=== PATIENT | female | born 1950 | race African-American/Black ===

== ENCOUNTER 2024-06-06 20:41 | Emergency (ER) | payer OTHER, SELFPAY ==
[2024-06-06] MEDS ORDERED: traMADol HCl 50 MG TAB ONE (21:10)
== END 2024-06-06 22:12 | disposition home or self-care (01) ==
LOC: NAV ERS 20:41
DX: S39.012A Strain of muscle, fascia and tendon of lower back, initial encounter (principal); I10 Essential (primary) hypertension; V48.5XXA Car driver injured in noncollision transport accident in traffic accident, initial encounter
CPT/HCPCS: 72100; 99284